=== PATIENT | female | born 1985 | race Asian ===

== ENCOUNTER 2017-04-08 08:45 | Emergency (ER) | payer OTHER ==
[~2017-04-08] VITALS: Ht 154.9 cm; Wt 55.0 kg
[~2017-04-08 08:45] MED LIST: DOCU-30 PO; IBUP-1222 PO; OXYC-302 PO; PREN1TAB60 PO
[2017-04-08 08:49] VITALS: BP 124/78
[2017-04-08 09:42] LABS: HEMATOCRIT 39.7 % (34.6-47.8); HEMOGLOBIN 13.3 g/dL (11.7-16.4); WHITE BLOOD COUNT 10.1 x10^3/uL (3.4-10)
[2017-04-08 09:51] LABS: BLOOD UREA NITROGEN 12 mg/dL (7-18)
[2017-04-08 09:57] LABS: IS PT STATUS REG ER OR PRE ER? YES
== END 2017-04-08 11:35 | disposition home or self-care (01) ==
LOC: ED 10:44
DX: M94.0 Chondrocostal junction syndrome [Tietze] (principal)
CPT/HCPCS: 36415; 71010; 80048; 82040; 84484; 84703; 85025; 93005; 99285

== ENCOUNTER 2019-03-06 15:41 | Outpatient (CLI) | payer BC, OTHER | END 2019-03-06 23:59 | disposition home or self-care (01) | LOC: LAB 15:41 | PROVIDERS: ATTEND Obstetrics & Gynecology | DX: Z02.9 Encounter for administrative examinations, unspecified (principal) ==

== ENCOUNTER 2019-08-17 10:29 | Emergency (ER) | payer BC ==
[~2019-08-17] VITALS: Ht 154.9 cm; Wt 91.8 kg
[~2019-08-17 10:29] MED LIST changes: +DOCU-131 PO; -DOCU-30 PO
[2019-08-17 10:35] VITALS: BP 112/68
[2019-08-17] MEDS ORDERED: PRENATAL (10:46)
--- NOTE | 2019-08-17 10:48 | NUR ---
PT TO ED FOR LEFT CALF SWELLING AND VISIBLE AND PALPABLE CORD TO MEDIAL CALF SINCE YESTERDAY AM. PT STATES PAIN WORSE WITH MOVEMENT. DENIES SOB OR CHEST PAIN OR PRESSURE. PT IS 37 WEEKS . PT CONNECTED TO MONITORS. VSS. NO NEEDS EXPRESSED. CALL LIGHT WITHIN REACH. STACI GARCIA TO BS FOR ASSESSMENT. ORDERS RECEVIED. AWAITING US.
--- NOTE | 2019-08-17 11:05 | NUR ---
us to bs.
--- NOTE | 2019-08-17 12:36 | NUR ---
l&d rn to bs for fht.
--- NOTE | 2019-08-17 12:38 | NUR ---
per l&d nurse, [facility] good. ready to dc.
== END 2019-08-17 12:56 | disposition home or self-care (01) ==
LOC: ED 12:00
DX: O26.893 Other specified pregnancy related conditions, third trimester (principal); M79.662 Pain in left lower leg; Z3A.35 35 weeks gestation of pregnancy
CPT/HCPCS: 99284

== ENCOUNTER 2019-09-12 06:48 | Inpatient (IN) | payer BC ==
[~2019-09-12] VITALS: Ht 154.9 cm; Wt 64.1 kg
[~2019-09-12 06:48] MED LIST changes: +PRENATAL
[2019-09-12] MEDS ORDERED: OXYTOCIN 30U/ 0.9% NaCL 500ML 500 ML IV ONE (07:18)
[2019-09-12] MEDS ORDERED: TERBUTALINE 1 MG/ML, 1ML IVPush PRN (07:30)
[2019-09-12] MEDS ORDERED: FENTANYL PF 100 MCG/2ML IVPush PRN (07:30)
[2019-09-12] MEDS ORDERED: FENTANYL PF 100 MCG/2ML IV PRN (07:30)
[2019-09-12] MEDS ORDERED: TERBUTALINE 1 MG/ML, 1ML SQ PRN (07:30)
[2019-09-12 07:46] LABS: BASOPHILS # (AUTO) 0.01 x10^3/uL (0-0.1); BASOPHILS % (AUTO) 0 % (0-1); EOSINOPHILS % (AUTO) 1 % (1-7); LYMPHOCYTES # (AUTO) 1.91 x10^3/uL (1-3.4); LYMPHOCYTES % (AUTO) 16 % (22-44); MD NO; MEAN CORPUSCULAR HEMOGLOBIN 31.3 pg (27.0-34.8); MEAN CORPUSCULAR HGB CONC 33.5 g/dL (32.4-35.8); MEAN CORPUSCULAR VOLUME 93.4 fL (80-100); MEAN PLATELET VOLUME 7.9 fL (7.4-10.4); MONOCYTES # (AUTO) 0.87 x10^3/uL (0.2-0.8); MONOCYTES % (AUTO) 7 % (2-9); NEUTROPHILS # (AUTO) 9.36 x10^3/uL (1.8-6.8); NEUTROPHILS % (AUTO) 76 % (42-75); PLATELET COUNT 235 x10^3/uL (130-400); RED BLOOD COUNT 4.22 x10^6/uL (3.82-5.3); RED CELL DISTRIBUTION WIDTH 13.5 % (9.6-15.2)
[2019-09-12] MEDS: LACTATED RINGERS 1,000 ML IV SCH ×3 (07:53→20:03)
[2019-09-12 07:54] VITALS: BP 110/69
[2019-09-12] MEDS ORDERED: FENTANYL/BUPIV./NS/PF 250 ML EPIDCONT ONE (08:01)
[2019-09-12] MEDS ORDERED: BUPIVACAINE 0.25% ONE (08:11)
[2019-09-12] MEDS ORDERED: NEWBORN KIT ONE (08:15)
[2019-09-12] MEDS ORDERED: MISOPROSTOL 200 MCG TABLET ONE (08:15)
[2019-09-12] MEDS ORDERED: LIDOCAINE 1%, 20ML ONE (08:15)
[2019-09-12] MEDS ORDERED: OXYTOCIN 30U/ 0.9% NaCL 500ML 500 ML ONE ×2 (08:16→14:21)
[2019-09-12] MEDS ORDERED: FENTANYL/BUPIV./NS/PF 250 ML EPIDCONT SCH (10:38)
[2019-09-12] MEDS ORDERED: LACTATED RINGERS 1,000 ML IV SCH (10:38)
[2019-09-12] MEDS ORDERED: LACTATED RINGERS 1,000 ML IVBOLUS PRN (11:00)
[2019-09-12] MEDS ORDERED: EPHEDRINE 50 MG/ML, 1ML IVPush PRN (11:00)
[2019-09-12] MEDS ORDERED: RHOGAM FROM BLOOD BANK 1 NOTE EA IM/IV ONE (12:00)
[2019-09-12] MEDS ORDERED: DIPH,PERTUSS(ACELL),TET VAC/PF NC IM-VACC PRN (12:00)
[2019-09-12] MEDS ORDERED: MAGNESIUM HYDROXIDE 8%, 30ML UDC PO PRN (12:00)
[2019-09-12] MEDS ORDERED: OXYcodone/APAP 5/325MG TABLET PO PRN ×2 (12:00)
[2019-09-12] MEDS ORDERED: ACETAMINOPHEN 325 MG TABLET PO PRN ×2 (12:00)
[2019-09-12] MEDS ORDERED: MISOPROSTOL 200 MCG TABLET PR PRN (12:00)
[2019-09-12] MEDS ORDERED: SIMETHICONE 80 MG CHEW TAB PO PRN (12:00)
[2019-09-12] MEDS ORDERED: ONDANSETRON 2MG/ML, 2ML IV PRN (12:00)
[2019-09-12] MEDS ORDERED: IBUPROFEN 600 MG TABLET ONE (12:49)
[2019-09-12] MEDS: IBUPROFEN 600 MG TABLET PO PRN ×2 (12:52→20:03)
[2019-09-12] MEDS: OXYTOCIN 30U/ 0.9% NaCL 500ML 500 ML IV SCH ×2 (14:23→21:43)
[2019-09-12 14:50] VITALS: BP 114/77
[2019-09-12] MEDS: DOCUSATE 100 MG CAPSULE PO PRN (20:03)
[2019-09-12 21:30] VITALS: BP 107/68
[2019-09-12 21:37] LABS: BASOPHILS # (AUTO) 0.04 x10^3/uL (0-0.1); BASOPHILS % (AUTO) 0 % (0-1); EOSINOPHILS # (AUTO) 0.08 x10^3/uL (0-0.4); EOSINOPHILS % (AUTO) 1 % (1-7); LYMPHOCYTES # (AUTO) 1.56 x10^3/uL (1-3.4); LYMPHOCYTES % (AUTO) 9 % (22-44); MD NO; MEAN CORPUSCULAR HEMOGLOBIN 31.4 pg (27.0-34.8); MEAN CORPUSCULAR HGB CONC 33.7 g/dL (32.4-35.8); MEAN CORPUSCULAR VOLUME 93.2 fL (80-100); MEAN PLATELET VOLUME 8.2 fL (7.4-10.4); MONOCYTES # (AUTO) 0.95 x10^3/uL (0.2-0.8); MONOCYTES % (AUTO) 6 % (2-9); NEUTROPHILS # (AUTO) 14.18 x10^3/uL (1.8-6.8); NEUTROPHILS % (AUTO) 84 % (42-75); PLATELET COUNT 209 x10^3/uL (130-400); RED BLOOD COUNT 3.85 x10^6/uL (3.82-5.3); RED CELL DISTRIBUTION WIDTH 13.4 % (9.6-15.2)
[2019-09-13 00:45] VITALS: BP 110/71
[2019-09-13 03:50] VITALS: BP 99/64
[2019-09-13] MEDS: IBUPROFEN 600 MG TABLET PO PRN ×3 (04:40→20:45)
[2019-09-13 07:30] VITALS: BP 100/62
[2019-09-13] MEDS: OXYTOCIN 30U/ 0.9% NaCL 500ML 500 ML IV SCH ×2 (07:43→17:43)
[2019-09-13] MEDS: LACTATED RINGERS 1,000 ML IV SCH ×3 (07:52→23:52)
[2019-09-13] MEDS: DOCUSATE 100 MG CAPSULE PO PRN ×2 (09:23→20:45)
[2019-09-13] MEDS: PRENATAL VIT/IRON/FA 1 EACH TABLET PO SCH (09:23)
[2019-09-13 20:00] VITALS: BP 129/63
[2019-09-14] MEDS: OXYTOCIN 30U/ 0.9% NaCL 500ML 500 ML IV SCH (03:43)
[2019-09-14] MEDS: IBUPROFEN 600 MG TABLET PO PRN (04:03)
[2019-09-14 07:20] VITALS: BP 109/73
[2019-09-14] MEDS: DOCUSATE 100 MG CAPSULE PO PRN (07:45)
[2019-09-14] MEDS: PRENATAL VIT/IRON/FA 1 EACH TABLET PO SCH (07:45)
[2019-09-14] MEDS: LACTATED RINGERS 1,000 ML IV SCH (07:52)
[2019-09-14] MEDS ORDERED: IBUP-1222 PO (08:34)
== END 2019-09-14 15:06 | disposition home or self-care (01) | DRG 807 ==
LOC: LDOP 06:48 → LDIP 07:31 → 2NW 14:33
PROVIDERS: ADMIT Obstetrics & Gynecology; ATTEND Obstetrics & Gynecology
PROC: 10907ZC Drainage of Amniotic Fluid, Therapeutic from Products of Conception, Via Natural or Artificial Opening (ICD-10-PCS; principal; 2019-09-12)
PROC: 10E0XZZ Delivery of Products of Conception, External Approach (ICD-10-PCS; 2019-09-12)
PROC: 3E0R3BZ Introduction of Anesthetic Agent into Spinal Canal, Percutaneous Approach (ICD-10-PCS; 2019-09-12)
PROC: 00HU33Z Insertion of Infusion Device into Spinal Canal, Percutaneous Approach (ICD-10-PCS; 2019-09-12)
DX: O77.0 Labor and delivery complicated by meconium in amniotic fluid (principal); Z37.0 Single live birth; O69.81X0 Labor and delivery complicated by cord around neck, without compression, not applicable or unspecified; Z3A.39 39 weeks gestation of pregnancy; Z82.49 Family history of ischemic heart disease and other diseases of the circulatory system
CPT/HCPCS: 36415; 82803; 85025; 86592; 86850; 86900; G0378; J3490; J2590; J3010; J7120

== ENCOUNTER 2020-12-08 13:33 | Inpatient (IN) | payer BC ==
[~2020-12-08] VITALS: Ht 154.9 cm; Wt 69.5 kg
[~2020-12-08 13:33] MED LIST changes: -OXYC-302 PO; +OXYC1TAB14 PO
[2020-12-08] MEDS ORDERED: LIDOCAINE 1%, 20ML ONE (21:51)
[2020-12-08] MEDS ORDERED: NEWBORN KIT ONE ×2 (21:51→21:55)
[2020-12-08] MEDS ORDERED: OXYTOCIN 30U/ 0.9% NaCL 500ML 500 ML ONE (21:51)
[2020-12-08] MEDS ORDERED: MISOPROSTOL 200 MCG TABLET ONE (21:52)
[2020-12-08 22:04] VITALS: BP 109/68
[2020-12-08] MEDS: LACTATED RINGERS 1,000 ML IV SCH (22:15)
[2020-12-08] MEDS ORDERED: FENTANYL PF 100 MCG/2ML IVPush PRN (22:30)
[2020-12-08] MEDS ORDERED: OXYTOCIN 30U/ 0.9% NaCL 500ML 500 ML IV ONE (22:30)
[2020-12-08] MEDS ORDERED: TERBUTALINE 1 MG/ML, 1ML SQ PRN (22:30)
[2020-12-08] MEDS ORDERED: ALUMINUM/MAG/SIMETHICONE 30 ML UDC PO PRN (22:30)
[2020-12-08] MEDS ORDERED: OXYTOCIN 30U/ 0.9% NaCL 500ML 500 ML IV PRN (22:30)
[2020-12-08] MEDS ORDERED: CALCIUM CARBONATE 500 MG TAB.CHEW PO PRN (22:30)
[2020-12-08] MEDS ORDERED: TERBUTALINE 1 MG/ML, 1ML IVPush PRN (22:30)
[2020-12-08] MEDS ORDERED: D5%-LACTATED RINGERS 1,000 ML IV SCH (22:30)
[2020-12-08] MEDS ORDERED: FENTANYL PF 100 MCG/2ML IV PRN (22:30)
[2020-12-08] MEDS ORDERED: ONDANSETRON 2MG/ML, 2ML IVPush PRN (22:30)
[2020-12-08 23:07] LABS: BASOPHILS % (AUTO) 1 % (0-1); EOSINOPHILS % (AUTO) 2 % (1-7); LYMPHOCYTES % (AUTO) 17 % (22-44); MD NO; MEAN CORPUSCULAR HEMOGLOBIN 30.3 pg (27.0-34.8); MEAN CORPUSCULAR HGB CONC 34.2 g/dL (32.4-35.8); MEAN PLATELET VOLUME 8.4 fL (7.4-10.4); MONOCYTES % (AUTO) 7 % (2-9); NEUTROPHILS % (AUTO) 73 % (42-75); PLATELET COUNT 232 x10^3/uL (130-400); RED BLOOD COUNT 3.75 x10^6/uL (3.82-5.3); RED CELL DISTRIBUTION WIDTH 14.1 % (9.6-15.2)
[2020-12-09] MEDS: LACTATED RINGERS 1,000 ML IV SCH ×2 (05:58→07:06)
[2020-12-09] MEDS ORDERED: FENTANYL/BUPIV./NS/PF 0 ML EPIDCONT ONE (06:50)
[2020-12-09] MEDS ORDERED: FENTANYL/BUPIV./NS/PF 250 ML EPIDCONT ONE (07:15)
[2020-12-09] MEDS ORDERED: LACTATED RINGERS 1,000 ML IV SCH (08:00)
[2020-12-09] MEDS ORDERED: FENTANYL/BUPIV./NS/PF 250 ML EPIDCONT SCH (08:00)
[2020-12-09] MEDS ORDERED: NALOXONE 0.4 MG/ML, 1ML IVPush PRN (08:00)
[2020-12-09] MEDS ORDERED: LACTATED RINGERS 1,000 ML IVBOLUS PRN (08:00)
[2020-12-09] MEDS ORDERED: EPHEDRINE 50 MG/ML, 1ML IVPush PRN (08:00)
[2020-12-09] MEDS ORDERED: LACTATED RINGERS 1,000 ML INTUTE PRN (17:30)
[2020-12-09] MEDS ORDERED: LACTATED RINGERS 1,000 ML INTUTE SCH (17:30)
[2020-12-09] MEDS ORDERED: SIMETHICONE 80 MG CHEW TAB PO PRN (19:00)
[2020-12-09] MEDS ORDERED: METHYLERGONOVINE 0.2 MG/ML IM PRN (19:00)
[2020-12-09] MEDS ORDERED: MISOPROSTOL 200 MCG TABLET PR PRN (19:00)
[2020-12-09] MEDS ORDERED: OXYcodone/APAP 5/325MG TABLET PO PRN (19:00)
[2020-12-09] MEDS ORDERED: ACETAMINOPHEN 325 MG TABLET PO PRN (19:00)
[2020-12-09] MEDS ORDERED: ONDANSETRON 2MG/ML, 2ML IV PRN (19:00)
[2020-12-09] MEDS: OXYTOCIN 30U/ 0.9% NaCL 500ML 500 ML IV SCH (19:07)
[2020-12-09 21:00] VITALS: BP 119/77
[2020-12-09] MEDS: IBUPROFEN 600 MG TABLET PO PRN (22:37)
[2020-12-10 01:00] VITALS: BP 93/57
[2020-12-10 03:11] LABS: BASOPHILS % (AUTO) 0 % (0-1); EOSINOPHILS % (AUTO) 1 % (1-7); LYMPHOCYTES % (AUTO) 7 % (22-44); MEAN CORPUSCULAR HEMOGLOBIN 30.3 pg (27.0-34.8); MEAN CORPUSCULAR HGB CONC 34.2 g/dL (32.4-35.8); MEAN PLATELET VOLUME 8.8 fL (7.4-10.4); MONOCYTES % (AUTO) 5 % (2-9); NEUTROPHILS % (AUTO) 87 % (42-75); PLATELET COUNT 187 x10^3/uL (130-400); RED BLOOD COUNT 3.48 x10^6/uL (3.82-5.3); RED CELL DISTRIBUTION WIDTH 14.2 % (9.6-15.2)
[2020-12-10 03:13] LABS: MD NO
[2020-12-10 04:00] VITALS: BP 104/69
[2020-12-10] MEDS: IBUPROFEN 600 MG TABLET PO PRN ×3 (04:36→20:55)
[2020-12-10] MEDS: OXYTOCIN 30U/ 0.9% NaCL 500ML 500 ML IV SCH ×2 (05:00→15:00)
[2020-12-10 08:10] VITALS: BP 105/70
[2020-12-10] MEDS: DOCUSATE 100 MG CAPSULE PO PRN ×2 (08:18→20:55)
[2020-12-10] MEDS: OXYcodone/APAP 5/325MG TABLET PO PRN ×3 (08:19→20:55)
[2020-12-10] MEDS: PRENATAL VIT/IRON/FA 1 EACH TABLET PO SCH (09:00)
[2020-12-10 12:30] VITALS: BP 98/72
[2020-12-10 16:30] VITALS: BP 102/68
[2020-12-10 19:40] VITALS: BP 93/56
[2020-12-11] MEDS: OXYTOCIN 30U/ 0.9% NaCL 500ML 500 ML IV SCH (01:00)
[2020-12-11] MEDS: IBUPROFEN 600 MG TABLET PO PRN ×2 (03:17→09:10)
[2020-12-11] MEDS: OXYcodone/APAP 5/325MG TABLET PO PRN (03:17)
[2020-12-11 07:33] VITALS: BP 114/61
[2020-12-11] MEDS: PRENATAL VIT/IRON/FA 1 EACH TABLET PO SCH (09:09)
[2020-12-11] MEDS: DOCUSATE 100 MG CAPSULE PO PRN (09:09)
== END 2020-12-11 15:48 | disposition home or self-care (01) | DRG 807 ==
LOC: LDIP 21:46 → 2NW 12-09 20:47
PROVIDERS: ADMIT Obstetrics & Gynecology; ATTEND Obstetrics & Gynecology
PROC: 10E0XZZ Delivery of Products of Conception, External Approach (ICD-10-PCS; principal; 2020-12-09)
PROC: 10H07YZ Insertion of Other Device into Products of Conception, Via Natural or Artificial Opening (ICD-10-PCS; 2020-12-09)
PROC: 10907ZC Drainage of Amniotic Fluid, Therapeutic from Products of Conception, Via Natural or Artificial Opening (ICD-10-PCS; 2020-12-09)
PROC: 3E033VJ Introduction of Other Hormone into Peripheral Vein, Percutaneous Approach (ICD-10-PCS; 2020-12-09)
PROC: 3E0R3BZ Introduction of Anesthetic Agent into Spinal Canal, Percutaneous Approach (ICD-10-PCS; 2020-12-09)
PROC: 00HU33Z Insertion of Infusion Device into Spinal Canal, Percutaneous Approach (ICD-10-PCS; 2020-12-09)
DX: O76 Abnormality in fetal heart rate and rhythm complicating labor and delivery (principal); Z37.0 Single live birth; Z20.822 Contact with and (suspected) exposure to COVID-19; Z3A.39 39 weeks gestation of pregnancy; O36.1930 Maternal care for other isoimmunization, third trimester, not applicable or unspecified
CPT/HCPCS: 36415; J7121; 85025; 86592; 86850; 86900; 87635; G0378; J3010; J2590; J7120